=== PATIENT | male | born 1970 ===

== ENCOUNTER → 2016-09-18 | Outpatient (CLI) | payer OTHER ==
[2016-09-21 01:44] LABS: CHLAMYDIA TRACH RNA*** NOT DETECTED (NOT DETECTED); GC (NEIS GONORRHOEAE)RNA** NOT DETECTED (NOT DETECTED)
== END | disposition home or self-care (01) ==
LOC: C.LABMFLN 07:54
PROVIDERS: ATTEND Family Medicine
DX: N34.2 Other urethritis (principal); R30.0 Dysuria